=== PATIENT | female | born 1945 | race Caucasian/White ===

== ENCOUNTER 2018-01-19 11:49 | Inpatient (IN) | payer MEDICARE, MEDICAID ==
[2018-01-19] VITALS (15 sets, daily range): BP systolic 126–165; BP diastolic 63–90
[~2018-01-19] VITALS: Ht 157.5 cm; Wt 60.0 kg
--- NOTE | ~2018-01-19 | EC ---
PATIENT:JOEL BENNETT DATE OF SERVICE: 01/19/18 SEX: F MEDICAL RECORD: [id number] DATE OF : 41 LOCATION:D.M2 D.210 AGE OF PATIENT: 72 ADMISSION DATE: 01/19/18 REFERRING PHYSICIAN: INTERPRETING PHYSICIAN: COURTNEY SAWYER MD ECHOCARDIOGRAM REPORT ECHO CHARGES 4 ECHO COMPLETE Date: 01/20/18 CLINICAL DIAGNOSIS: BRADYCARDIA ECHOCARDIOGRAPHIC MEASUREMENTS (adult normal given) AC root (d.<3.7cm) 3.3 cm LV Septum d (<1.2 cm> 1.3 cm Valve Excursion 1.5 cm LV Septum (systole) 1.9 cm Left Atria (s.<4.0cm> 3.6 cm LVPW d(<1.2cm) 1.4 cm RV (d.<2.3cm) 3.6 cm LVPW (sytole) 2.0 cm LV diastole(<5.6CM) 4.9 cm MV E-F(>70mm/sec) cm LV systole 3.0 cm LVOT Diameter 1.7 cm MV exc.(>10mm) 1.6 cm Est.ejection fraction (50-75%) % DOPPLER: LVIT cm/sec A 126 cm/sec E 100 cm/sec LA cm/sec RVSP 41 mmHg LVOT 125 cm/sec AOP1/2T m/s Asc. Ao 154 cm/sec RVOT 58 cm/sec RA cm/sec PA 113 cm/sec AV Gradient Peak 9.47 mmHg AV Mean 5.07 mmHg AV Area 2.2 cm MV Gradient Peak 7.40 mmHg MV Mean 4.63 mmHg MV Area cm COMMENTS: Nurse Transition: 2 SOO IVEY Track Watchman: 4 Dr. Sawyer TAPE# PACS Pericardial Effusion N DATE OF SERVICE: PROCEDURE: Transthoracic echocardiogram. FINDINGS: 1. Left ventricle shows mild concentric left ventricular hypertrophy, ejection fraction of 65%. There is no regional wall motion abnormalities. Inflow characteristics are consistent with diastolic dysfunction. 2. The left atrium is normal size, shape, structure, and function. 3. The aortic valve is normal. ECHOCARDIOGRAM REPORT [id number] JOEL BENNETT 4. The mitral valve has mitral annular calcification and thickening. There is no obvious mitral regurgitation or mitral stenosis. 5. The tricuspid valve has mild tricuspid regurgitation. The right ventricular systolic pressure is 41 mmHg. 6. The right ventricle is normal size, shape, structure, and function. 7. The right atrium is normal. CONCLUSION: The patient has evidence of hypertensive heart disease, but otherwise normal echocardiogram for the patient's stated age. TRANSINT:[id number] Voice Confirmation ID: [id number] DOCUMENT ID: [id number] COURTNEY SAWYER MD at 0916 CC: [id number] DICTATION DATE: 01/21/18 1306 E [place] SPECIALIST: 01/21/18 1505 DIS IN 01/20/18 [facility] [address] [place] [address]
--- NOTE | ~2018-01-19 | MORECARE ---
CASE MANAGEMENT DISCHARGE SUMMARY PATIENT: JOEL BENNETT UNIT: [id number] ADM DATE: 01/19/18 AGE: 72 : 41 SEX: F ROOM/BED: D.2103 AUTHOR: COLEMAN RAI PHYSICIAN: REFERRING PHYSICIAN: LESLEY HAMILTON MD DATE OF SERVICE: 01/21/18 Discharge Plan Patient Name: JOEL BENNETT Facility: [facility]:[place] : 1945 Planned Disposition: Home Anticipated Discharge Date: 01/20/18 Discharge Date: 01/20/2018 Expected LOS: 1 Initial Reviewer: [email or web address] Initial Review Date: 01/19/2018 Generated: 01/21/18 9:19 am Last DP export: 01/19/18 5:16 Patient Name: JOEL BENNETT Page [id number] at 0819 All edits/amendments must be made on the electronic document DICTATION DATE: 01/21/18817 BUCKET CHUCKER: AARON 01/21/18817 RPT#: [id number] DC DATE:01/20/18 STATUS: DIS IN [facility] [address] [place] [address] END OF REPORT
--- NOTE | ~2018-01-19 | MORECARE ---
CASE MANAGEMENT DISCHARGE SUMMARY PATIENT: JOEL BENNETT UNIT: [id number] ADM DATE: 01/19/18 AGE: 72 : 41 SEX: F ROOM/BED: D.210 AUTHOR: COLEMAN RAI PHYSICIAN: REFERRING PHYSICIAN: LESLEY HAMILTON MD DATE OF SERVICE: 01/19/18 Discharge Plan Patient Name: JOEL BENNETT Facility: [facility]:[place] : 1945 Planned Disposition: Anticipated Discharge Date: Discharge Date: Expected LOS: Initial Reviewer: [email or web address] Initial Review Date: 01/19/2018 Generated: 01/19/18 7:16 pm Patient Name: JOEL BENNETT Page [id number] at 1816 All edits/amendments must be made on the electronic document DICTATION DATE: 01/19/181814 ELECTRICAL PROSPECTING ENGINEER: AARON 01/19/181814 RPT#: [id number] DC DATE: STATUS: ADM IN [facility] [address] [place] [address] END OF REPORT
[2018-01-19 13:12] LABS: BASOPHILS 0.3 % (0-2); EOSINOPHILS 1.9 % (0-7); HEMATOCRIT 31.8 % (36.0-48.0); HEMOGLOBIN 10.4 g/dL (12-16); IMMATURE GRANULOCYTES 0.4 % (0-5); LYMPHOCYTES 19.6 % (15-50); MCHC 32.7 g/dL (31.0-37.0); MCV 85.7 fL (80.0-100.0); MEAN PLATELET VOLUME 10.7 fL (7.4-10.4); MONOCYTES 9.5 % (2-11); NEUTROPHILS 68.3 % (40-80); PLATELET COUNT 211 10x3/uL (130-400); RBC 3.71 10x6/uL (4.00-5.40); RDW 13.2 % (11.5-14.5); WBC 6.8 10x3/uL (4.8-10.8)
[2018-01-19 13:27] LABS: ALBUMIN 3.2 g/dL (3.4-5.0); ALKALINE PHOSPHATASE 81 U/L (46-116); ALT (SGPT) 12 U/L (10-68); BILIRUBIN - TOTAL 0.38 mg/dL (0.2-1.3); CALC OSMOLALITY 292 mosm/kg (275-300); CALCIUM 8.8 mg/dL (8.5-10.1); CARBON DIOXIDE 29.8 mmol/L (21.0-32.0); CHLORIDE - SERUM 105 mmol/L (98-107); CREATININE - SERUM 1.5 mg/dL (0.6-1.3); GLUCOSE 204 mg/dL (74-106); POTASSIUM - SERUM 4.2 mmol/L (3.5-5.1); PROTEIN - SERUM 6.8 g/dL (6.4-8.2); SODIUM 140 mmol/L (136-145); UREA NITROGEN 34 mg/dL (7-18); eGFR NON AFRICAN AMERICAN 36 mL/min (90-120)
[2018-01-19 13:39] LABS: CKMB 1.7 U/L (0.0-3.6); CREATINE KINASE 111 UL (21-215); MAGNESIUM - SERUM 1.7 mg/dL (1.8-2.4); TROPONIN-I < 0.017 ng/mL (0.000-0.060)
[2018-01-19 13:49] LABS: UDS - AMPHET NEGATIVE QUAL (NEGATIVE); UDS - BARB NEGATIVE QUAL (NEGATIVE); UDS - BENZO NEGATIVE QUAL (NEGATIVE); UDS - COCAINE NEGATIVE QUAL (NEGATIVE); UDS - OPIATE NEGATIVE QUAL (NEGATIVE); UDS - PCP NEGATIVE QUAL (NEGATIVE); UDS - THC NEGATIVE QUAL (NEGATIVE)
[2018-01-19 13:53] LABS: APPEARANCE CLOUDY (CLEAR); COLOR YELLOW (YELLOW); GLUCOSE NEGATIVE (NEGATIVE); KETONE NEGATIVE (NEGATIVE); NITRITE POSITIVE (NEGATIVE); PROTEIN TRACE mg/dL (NEGATIVE); SPECIFIC GRAVITY 1.015 (1.005-1.020); UROBILINOGEN NORMAL (NORMAL)
[2018-01-19 13:54] LABS: BACTERIA MANY /hpf (NONE SEEN); BILIRUBIN NEGATIVE (NEGATIVE); EPITHELIAL CELLS 0-5 /hpf (0-5); MUCUS <1+ /lpf (NONE SEEN)
[2018-01-20] VITALS: BP 140/64
[2018-01-20 00:32] VITALS: BP 173/95; BMI 24.2
[2018-01-20 01:05] VITALS: BP 173/85
[2018-01-20 04:00] VITALS: BP 151/78
[2018-01-20 08:19] VITALS: BP 148/80
[2018-01-20 09:59] LABS: BASOPHILS 0.4 % (0-2); EOSINOPHILS 1.4 % (0-7); HEMATOCRIT 38.1 % (36.0-48.0); IMMATURE GRANULOCYTES 0.1 % (0-5); LYMPHOCYTES 19.6 % (15-50); MCHC 32.8 g/dL (31.0-37.0); MCV 85.2 fL (80.0-100.0); MEAN PLATELET VOLUME 10.8 fL (7.4-10.4); NEUTROPHILS 71.5 % (40-80); PLATELET COUNT 246 10x3/uL (130-400); RDW 13.1 % (11.5-14.5); WBC 7.2 10x3/uL (4.8-10.8)
[2018-01-20 10:00] LABS: HEMOGLOBIN 12.5 g/dL (12-16); RBC 4.47 10x6/uL (4.00-5.40)
[2018-01-20 10:12] LABS: % SATURATION 18 % (15-55); IRON 51 ug/dl (35-150); TOTAL IRON BIND CAPACITY 279 ug/dl (260-445); UNSAT IRON BIND CAPACITY 228 ug/dl (150-375)
[2018-01-20 10:22] LABS: ANION GAP 10.2 mmol/L (8-16); CALCIUM 9.1 mg/dL (8.5-10.1); CARBON DIOXIDE 29.8 mmol/L (21.0-32.0); CREATININE - SERUM 0.9 mg/dL (0.6-1.3)
[2018-01-20 12:53] VITALS: Ht 157.5 cm; Wt 60.0 kg
[2018-01-22 08:09] LABS: FOLATE (FOLIC ACID) - SERUM 17.9 ng/mL (>3.0)
== END 2018-01-20 14:42 | disposition left against medical advice (07) | DRG 689 ==
LOC: D.ER 11:49 → D.M2 16:27 → D.ER 16:27 → D.M2 19:20
PROVIDERS: Family Medicine; Internal Medicine Nephrology
DX: N39.0 Urinary tract infection, site not specified (principal); G93.41 Metabolic encephalopathy; N17.9 Acute kidney failure, unspecified; J96.11 Chronic respiratory failure with hypoxia; R55 Syncope and collapse; D64.9 Anemia, unspecified; J44.9 Chronic obstructive pulmonary disease, unspecified; I10 Essential (primary) hypertension; E78.5 Hyperlipidemia, unspecified; K21.9 Gastro-esophageal reflux disease without esophagitis; I48.91 Unspecified atrial fibrillation; G40.909 Epilepsy, unspecified, not intractable, without status epilepticus; Z86.73 Personal history of transient ischemic attack (TIA), and cerebral infarction without residual deficits

== ENCOUNTER → 2019-01-20 13:38 | Outpatient (CLI) | payer MEDICARE, MEDICAID ==
[2018-01-20 12:53] VITALS: BMI 24.2
[2019-01-20 14:15] LABS: CREATININE - SERUM 1.3 mg/dL (0.6-1.3)
[2019-01-20 14:16] LABS: ANION GAP 10.4 mmol/L (8-16); CARBON DIOXIDE 31.1 mmol/L (21.0-32.0); POTASSIUM - SERUM 4.5 mmol/L (3.5-5.1)
== END | disposition home or self-care (01) ==
LOC: D.LABREF 13:38
PROVIDERS: ATTEND Emergency Medicine
DX: E10.65 Type 1 diabetes mellitus with hyperglycemia (principal); I11.0 Hypertensive heart disease with heart failure